=== PATIENT | male | born 1955 | race Caucasian/White ===

== ENCOUNTER 2022-07-01 09:41 | Outpatient (CLI) | payer MEDICARE, OTHER, SELFPAY ==
--- NOTE | 2022-07-01 10:06 | CT_ITS ---
WS: [id number] LDCT LUNG CANCER SCREENING TECHNIQUE: Noncontrast CT of the chest with coronal and sagittal reformatted images. CLINICAL INFORMATION: FORMER SMOKER COMPARISON: None. DLP: 72.42 mGy.cm DIvol: Mean CTDIvol: 1.60 (mGy) All CT scans at [facility] use at least one of these dose optimization techniques: automat ed exposure control; mA and/or kV adjustment per patient size (includes targeted exams where dose is matched to clinical indication); or iterative reconstruction. FINDINGS: A few tiny noncalcified nodules in the RIGHT upper lobe and RIGHT lower lobe. Tiny noncalcified nodul e LEFT lower lobe. Normal caliber thoracic aorta. Coronary calcification. No mediastinal or hilar lym phadenopathy. Normal GE junction. Normal adrenal glands. Splenic granuloma. No axillary lymphadenopat hy. Hypertrophic changes thoracic spine. CT/CT lung screening [id number] IMPRESSION: LUNG-RADS: 2-Benign Appearance or Behavior FOLLOW UP: 12 Month: Continue annual screening with LDCT
== END 2022-07-01 09:42 | disposition home or self-care (01) ==
LOC: RAD 09:43
PROVIDERS: PCP Family Medicine; Visit Provider Family Medicine
DX: Z12.2 Encounter for screening for malignant neoplasm of respiratory organs (principal); Z87.891 Personal history of nicotine dependence
CPT/HCPCS: 71271

== ENCOUNTER 2023-07-08 07:53 | Outpatient (CLI) | payer MEDICARE, OTHER, SELFPAY ==
--- NOTE | 2023-07-08 08:02 | CT_ITS ---
WS: [id number] LDCT LUNG CANCER SCREENING HISTORY: HX OF TOBACCO USE TECHNIQUE: Axial imaging performed from the apices to 1 cm below the costophrenic angles. Coronal and sagittal reformats are submitted with axial MIP series. All CT scans at [facility] use at least one of these dose optimization techniques: automated exposure control; mA and/or kV adjustment per patient size (includes targeted exams where dose is matched to clinical indication); or iterativ e reconstruction. DLP: 137.16 mGy.cm DIvol: Mean CTDIvol: 3.30 (mGy) COMPARISON: 07/01/2022 Diagnostic quality: Satisfactory Lungs: Scattered micronodules are noted as before. There are no new masses or nodule. No increasing s ize of the nodules. No pneumonia. No endobronchial lesions. Heart: Normal size heart with no pericardial effusion.. Coronary artery calcifications. Other findings: Mild atherosclerosis aorta. Normal size aorta and pulmonary artery. No adenopathy darleen ntified. Large calcification in the spleen. May be from prior trauma. Hepatic steatosis. Large anteri or bridging osteophytes throughout the thoracic spine. Prior RIGHT rotator cuff repair. Several ancho rs are noted in the humeral head. IMPRESSION: CT/CT lung screening [id number] LUNG-RADS: 2-Benign Appearance or Behavior FOLLOW UP: 12 Month: Continue annual screening with LDCT OTHER FINDINGS (S MODIFIER): None.
== END 2023-07-08 07:54 | disposition home or self-care (01) ==
LOC: RAD 07:53
PROVIDERS: PCP Family Medicine; Visit Provider Family Medicine
DX: Z12.2 Encounter for screening for malignant neoplasm of respiratory organs (principal); Z87.891 Personal history of nicotine dependence
CPT/HCPCS: 71271

== ENCOUNTER 2023-09-16 09:23 | Outpatient (CLI) | payer MEDICARE, OTHER, SELFPAY ==
--- NOTE | 2023-09-16 09:25 | XRR_ITS ---
PROCEDURE INFORMATION: Exam: XR Chest Exam date and time: 09/16/2023 9:34 AM Age: 68 years old Clinical indication: Patient HX: Wheezing, choked on food 3 days ago; Additional info: Expiratory wheezing TECHNIQUE: Imaging protocol: Radiologic exam of the chest. Views: 2 views. COMPARISON: CT lung screening [id number] 07/08/2023 8:33 AM FINDINGS: Lungs: Bilateral lower lobe pulmonary infiltrates, right greater than left. Pleural spaces: Unremarkable. No pleural effusion. No pneumothorax. Heart/Mediastinum: Unremarkable. No cardiomegaly. Bones/joints: Unremarkable. XR/XR chest 2V* [id number] IMPRESSION: Bibasilar pulmonary infiltrates.
== END 2023-09-16 09:24 | disposition home or self-care (01) ==
LOC: RAD 09:24
PROVIDERS: PCP Family Medicine; Visit Provider Nurse Practitioner Family
DX: R06.2 Wheezing (principal)
CPT/HCPCS: 71046

== ENCOUNTER 2023-11-21 05:24 | Emergency (ER) | payer MEDICARE, OTHER, SELFPAY ==
[2023-11-21] VITALS (7 sets, daily range): BP systolic 155–202; BP diastolic 72–85; PULSE 75–83; RESP 16–24; TEMP 36.8; O2SAT 89–97; BMI 38.0
--- NOTE | 2023-11-21 05:30 | ECG_ITS ---
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 Measurements Intervals [place] Rate: 86 P: 79 MT: 164 QRS: 70 QRSD: 155 T: 53 QT: 372 QTc: 447 Interpretive Statements SINUS RHYTHM INDETERMINATE AXIS RIGHT BUNDLE BRANCH BLOCK [120+ ms QRS DURATION, UPRIGHT V1, 40+ ms S IN I/aVL/V4/V5/V6] No previous ECG available for comparison Electronically Signed On 11-21-2023 17:32:49 HAND WEAVER by Alondra Shaffer M.D. [email or web address] [email or web address]/store/NU/[id number] f
--- NOTE | 2023-11-21 05:30 | XRR_ITS ---
PROCEDURE INFORMATION: Exam: XR Chest Exam date and time: 11/21/2023 5:32 AM Age: 68 years old Clinical indication: Shortness of breath; Chest pressure; Patient HX: Chest pain with SOB. TECHNIQUE: Imaging protocol: Radiologic exam of the chest. Views: 1 view. COMPARISON: CR XR chest 2V* [id number] 09/16/2023 9:34 AM FINDINGS: Lungs: Bibasilar subsegmental atelectasis. Small overlying consolidation is not excluded. Pleural spaces: No large pleural effusion. No distinct pneumothorax. Heart/Mediastinum: Cardiomediastinal silhouette is midline and normal in size. Bones/joints: Osseous structures are unchanged. XR/XR chest 1V portable [id number] IMPRESSION: Bibasilar subsegmental atelectasis. Small overlying consolidation is not excluded.
[2023-11-21 05:42] LABS: Basophils % 0.3 %; Eosinophils # 0.2 10^3/uL (0.0-0.8); Eosinophils % 3.3 %; Hematocrit 37.8 % (37-53); Lymphocytes # 1.5 10^3/uL (0.8-4.8); Lymphocytes % 19.8 %; Mean Corpuscular HGB Conc 32.3 g/dL (30-55); Mean Corpuscular Hemoglobin 30.2 pg (27-33); Mean Corpuscular Volume 93.6 fl (82-101); Mean Platelet Volume 10.8 fL (7.4-10.4); Monocytes # 0.5 10^3/uL (0.2-0.9); Monocytes % 6.3 %; Neutrophils # 5.16 10^3/uL (1.8-7.7); Nucleated Red Blood Cells % 0 %; Platelet Count 188 10^3/cmm (157-399); Red Blood Count 4.04 10^6/uL (3.85-5.65); Red Cell Distribution Width 14.7 % (12.1-15.1); White Blood Count 7.36 10^3/uL (3.29-11.43)
[2023-11-21 05:54] LABS: INR 0.98 (0.8-1.2)
--- NOTE | 2023-11-21 05:57 | ED_ITS ---
Documented by User: Jaylen Bojorquez DO 11/21/23 06:00 HPI - SOB/Dyspnea 2 General: Chief Complaint: Shortness of Breath/Dyspnea Stated Complaint: SOB Time Seen by Provider: 11/21/23 05:30 History of Present Illness: HPI Narrative: Patient presents to the ER with complaints of about 3 days of shortness of breath. This only happens when he ambulates and then it takes 5 to 10 minutes for him to regain his composure. Patient does not have a history of COPD he does not use home oxygen. Patient denies fever chills cough cold sore throats nausea vomiting diarrhea constipation. Patient does have an albuterol inhaler that he received approximately month ago when he had pneumonia but he has been using it with minimal improvement. Patient did get back to normal over that pneumonia and this is something new. Review of Systems 2 General: Reports: 10 or more systems reviewed and unremarkable except in HPI and below Physical Exam 2 Const: COMMON NORMALS: no acute distress, average body habitus, patient oriented x3, no limitations, healthy appearing, alert and well nourished HENMT: COMMON NORMALS: normocephalic, atraumatic, hearing grossly normal bilaterally, external ears normal, Normal external nose present, moist oral mucous membranes and oropharynx normal HEAD & SCALP: normocephalic and atraumatic NOSE: Normal external nose present EXTERNAL EAR: Yes external ears normal Eye: COMMON NORMALS: Equal, round and reactive pupils present, EOMs intact bilaterally, conjunctivae normal and no scleral icterus CONJUNCTIVA: Yes conjunctivae normal PUPIL: Yes Equal, round and reactive pupils present Neck/C-Spine: COMMON NORMALS: no JVD Chest: COMMONS NORMALS: normal inspection of the chest and normal palpation of entire chest wall Resp: COMMON NORMALS: normal respiratory effort, No retractions and No use of accessory muscles; negative for clear to auscultation bilaterally (biat wheezing) AUSCULTATION: not clear to auscultation bilaterally (biat wheezing) Cardio: COMMON NORMALS: no JVD, regular rate, regular rhythm, S1 normal heart sound present, S2 normal heart sound present and No gallops present (Cardio) RATE: regular rate RHYTHM: regular rhythm HEART SOUNDS: S1 normal heart sound present and S2 normal heart sound present GI: COMMON NORMALS: Normal to inspection, nondistended, normoactive bowel sounds present, Soft to palpation, non-tender, No hepatosplenomegaly present and no masses PALPATION: Yes Soft to palpation and Yes No hepatosplenomegaly present Neuro: COMMON NORMALS: patient oriented x3 SENSORIUM/ORIENTATION: Yes alert Course 2 Vital Signs: Vital signs: Vital Signs Temperature 98.2 F 11/21/23 05:31 Pulse Rate 75 11/21/23 10:09 Respiratory Rate 17 11/21/23 10:09 Blood Pressure 158/72 11/21/23 10:09 Pulse Oximetry 93 11/21/23 10:09 Oxygen Delivery Me thod Nasal Cannula 11/21/23 06:08 Oxygen Flow Rate 2 11/21/23 06:08 MDM - SOB/Dyspnea Medical Records I reviewed the patient's medical records. Lab Data I reviewed the patient's lab results. 11/21/23 05:38 11/21/23 05:38 Labs/Radiology: Radiology Impressions Chest X-Ray 11/21/23 05:30 IMPRESSION: Bibasilar subsegmental atelectasis. Small overlying consolidation is not excluded. Laboratory Results WBC 7.36 10^3/uL (3.29-11.43) 11/21/23 05:38 RBC 4.04 10^6/uL (3.85-5.65) 11/21/23 05:38 Hgb 12.20 g/dL (11.27-16.99) 11/21/23 05:38 Hct 37.8 % (37-53) 11/21/23 05:38 MCV 93.6 fl (82-101) 11/21/23 05:38 MCH 30.2 pg (27-33) 11/21/23 05:38 MCHC 32.3 g/dL (30-55) 11/21/23 05:38 RDW 14.7 % (12.1-15.1) 11/21/23 05:38 Plt Count 188 10^3/cmm (157-399) 11/21/23 05:38 MPV 10.8 fL (7.4-10.4) H 11/21/23 05:38 Neut % (Auto) 70.0 % 11/21/23 05:38 Lymph % (Auto) 19.8 % 11/21/23 05:38 [place] % (Auto) 6.3 % 11/21/23 05:38 Eos % (Auto) 3.3 % 11/21/23 05:38 Baso % (Auto) 0.3 % 11/21/23 05:38 Neut # (Auto) 5.16 10^3/uL (1.8-7.7) 11/21/23 05:38 Lymph # (Auto) 1.5 10^3/uL (0.8-4.8) 11/21/23 05:38 [place] # (Auto) 0.5 10^3/uL (0.2-0.9) 11/21/23 05:38 Eos # (Auto) 0.2 10^3/uL (0.0-0.8) 11/21/23 05:38 Baso # (Auto) 0.0 10^3/uL (0.0-0.1) 11/21/23 05:38 Nucleated RBC % (auto) 0 % 11/21/23 05:38 Nucleated RBCs # 0.0 /100WBC 11/21/23 05:38 PT 13.30 SECONDS (12.1-14.9) 11/21/23 05:38 INR 0.98 (0.8-1.2) 11/21/23 05:38 Sodium 139 mmol/L (136-145) 11/21/23 05:38 Potassium 4.5 mmol/L (3.5-5.1) 11/21/23 05:38 Chloride 102 mmol/L (98-107) 11/21/23 05:38 Carbon Dioxide 27 mmol/L (22-29) 11/21/23 05:38 Anion Gap 14.5 (5-19) 11/21/23 05:38 BUN 15 mg/dL (8-23) 11/21/23 05:38 Creatinine 1.0 mg/dL (0.7-1.2) 11/21/23 05:38 GFR Calculation 74.3 mL/min (90-130) L 11/21/23 05:38 Glucose 161 mg/dL (65-115) H 11/21/23 05:38 Calculated Osmolality 292 mOsm/kg (285-295) 11/21/23 05:38 Calcium 8.9 mg/dL (8.5-10.5) 11/21/23 05:38 Total Bilirubin 0.6 mg/dL (0.15-1.2) 11/21/23 05:38 AST 19 U/L (0-40) 11/21/23 05:38 ALT 31 U/L (0-41) 11/21/23 05:38 Alkaline Phosphatase 40 U/L (40-130) 11/21/23 05:38 Troponin T Baseline 21 ng/L (0-15) H 11/21/23 05:38 Troponin T 120 Minute 19.30 ng/L (0-15) H 11/21/23 07:47 Delta Troponin T -1.70 ABS# (0-10) L 11/21/23 07:47 NT-Pro-B Natriuret Pep 384 pg/mL (0-125) H 11/21/23 05:38 Total Protein 6.4 g/dL (6.6-8.7) L 11/21/23 05:38 Albumin 4.5 g/dL (3.5-5.2) 11/21/23 05:38 Globulin 1.9 g/dL (1.3-4.6) 11/21/23 05:38 Influenza Type A Ag negative (Negative) 11/21/23 05:59 Influenza Type B Ag negative (Negative) 11/21/23 05:59 SARS-CoV-2 Ag (Rapid) negative (Negative) 11/21/23 05:59 All radiology interpretation(s) finalized by discharge Discharge Plan Discharge Patient Disposition: Home Clinical Impression: Acute exacerbation of chronic obstructive airways disease Condition: Stable Prescriptions: New doxycycline hyclate 100 mg capsule 100 mg PO BID 5 Days Qty: 10 0RF prednisone 20 mg tablet 20 mg PO DAILY 5 Days Qty: 10 0RF Rx Instructions: days 11-21 of therapy No Action cyclobenzaprine 10 mg tablet 10 mg PO DAILY atorvastatin 40 mg tablet 40 mg PO QPM meloxicam 15 mg tablet 15 mg PO DAILY glipizide 10 mg tablet 10 mg PO BID hydrocodone-acetaminophen 10-325 mg tablet 1 tab PO Q4H tramadol 50 mg tablet 50 - 100 mg PO Q4H PRN (Reason: Pain) tamsulosin 0.4 mg capsule 0.4 mg PO BID metformin 1,000 mg tablet 1,000 mg PO BID lisinopril 30 mg tablet 30 mg PO DAILY gabapentin 300 mg capsule 300 mg PO BID albuterol sulfate 90 mcg/actuation HFA aerosol inhaler 2 puff INHALATION Q6H finasteride 5 mg tablet 5 mg PO DAILY escitalopram oxalate 20 mg tablet 20 mg PO DAILY tadalafil 20 mg Tablet 20 mg PO DAILY PRN (Reason: Erectile Dysfunction) Rx Instructions: administer approximately 30min before sexual activity; do not use more than 1 dose per 24hrs Fish Oil 300-1,000 mg Capsule 2 cap PO QPM Discharge Orders: Discharge ED (Routine); Ordered 11/21/23 Ordered By: Stan Johns Referrals: Antione Zhao MD [Primary Care Provider] - 1 week Discharge Diet: Usual diet and Low Salt Discharge Activity: Increase activity as tolerated Patient Instructions: Opioid Safety, Pain Management Activity Restrictions/Additional Instructions: As we discussed we think you have acute bronchitis. We recommend the medications that we have prescribed for the next 5 days. We also recommend to use your inhaler 2 puffs 4 times daily for the next 5 days and then as needed. Also follow-up with your doctor in the next 1-2 weeks to discuss additional either pulmonary function testing and/or stress testing. If it anytime you develop worsening shortness of breath chest pain etc. return to this or the nearest emergency department. Coding Level of Care Code ED Dental Professional for Chg Fwd Documented by User: Stan Johns DO 11/21/23 11:11 HPI - SOB/Dyspnea 2 General: Chief Complaint: Shortness of Breath/Dyspnea Stated Complaint: SOB Time Seen by Provider: 11/21/23 05:30 Course 2 Reevaluation(s): Reevaluation #1: This patient was checked out to me over from the overnight physician. The patient is has approximately 3-day history of feeling short of breath with activity. No fevers or chills. No associated chest pain. No prior history of similar occurrences. No known history of cardiovascular disease or cardiopulmonary disease. He is an ex-smoker having discontinued 10 years ago. No recent illness or exposure to infectious disease. My clinical examination reveals him to be alert with no evidence of respiratory difficulty. He speaks in complete sentences. His chest is clear without wheeze or crackle cardiovascular and rate without murmur. Time: 09:25 Reevaluation #2: Patient remained stable. He is ambulated about the emergency department without oxygen and he feels back to baseline. His troponins did not have a significant positive delta, his BNP is nondiagnostic. His chest x-ray shows atelectatic changes but no evidence of infection and has not had fever or leukocytosis. His COVID and influenza tests are negative. This seems to be more consistent with exacerbation of his COPD at this time we will continue him on 5-day course of prednisone and as well as have him use his beta agonist inhaler 4 times daily on her scheduled basis. We also discussed follow-up with his primary care doctor to discuss possible pulmonary function testing and possibly stress testing. Time: 11:04 Vital Signs: Vital signs: Vital Signs Temperature 98.2 F 11/21/23 05:31 Pulse Rate 75 11/21/23 10:09 Respiratory Rate 17 11/21/23 10:09 Blood Pressure 158/72 11/21/23 10:09 Pulse Oximetry 93 11/21/23 10:09 Oxygen Delivery Me thod Nasal Cannula 11/21/23 06:08 Oxygen Flow Rate 2 11/21/23 06:08 MDM - SOB/Dyspnea Medical Decision Making Patient with a known history of COPD without any known history of cardiovascular disease to come to the emergency department because of 3 days of shortness of breath and some wheezing particular with activity. There was no known exposure to infectious disease no associated fever or chills. Workup was initiated by the overnight physician and disposition was made by oh. Serial troponins were notable for no significant delta. Serial EKGs did not have show any dynamic ischemic changes. His chest x-ray was generally reassuring with atelectatic changes but questionable saltation. And his viral studies were also reassuring. At this time it seems to be consistent with a exacerbation of his COPD and is being placed on prednisone as well as scheduled use of his in metered-dose inhale and a 5-day course of doxycycline. r with primary care follow-up for additional testing as well as return precautions. Lab Data 11/21/23 05:38 11/21/23 05:38 Labs/Radiology: Radiology Impressions Chest X-Ray 11/21/23 05:30 IMPRESSION: Bibasilar subsegmental atelectasis. Small overlying consolidation is not excluded. Laboratory Results WBC 7.36 10^3/uL (3.29-11.43) 11/21/23 05:38 RBC 4.04 10^6/uL (3.85-5.65) 11/21/23 05:38 Hgb 12.20 g/dL (11.27-16.99) 11/21/23 05:38 Hct 37.8 % (37-53) 11/21/23 05:38 MCV 93.6 fl (82-101) 11/21/23 05:38 MCH 30.2 pg (27-33) 11/21/23 05:38 MCHC 32.3 g/dL (30-55) 11/21/23 05:38 RDW 14.7 % (12.1-15.1) 11/21/23 05:38 Plt Count 188 10^3/cmm (157-399) 11/21/23 05:38 MPV 10.8 fL (7.4-10.4) H 11/21/23 05:38 Neut % (Auto) 70.0 % 11/21/23 05:38 Lymph % (Auto) 19.8 % 11/21/23 05:38 [place] % (Auto) 6.3 % 11/21/23 05:38 Eos % (Auto) 3.3 % 11/21/23 05:38 Baso % (Auto) 0.3 % 11/21/23 05:38 Neut # (Auto) 5.16 10^3/uL (1.8-7.7) 11/21/23 05:38 Lymph # (Auto) 1.5 10^3/uL (0.8-4.8) 11/21/23 05:38 [place] # (Auto) 0.5 10^3/uL (0.2-0.9) 11/21/23 05:38 Eos # (Auto) 0.2 10^3/uL (0.0-0.8) 11/21/23 05:38 Baso # (Auto) 0.0 10^3/uL (0.0-0.1) 11/21/23 05:38 Nucleated RBC % (auto) 0 % 11/21/23 05:38 Nucleated RBCs # 0.0 /100WBC 11/21/23 05:38 PT 13.30 SECONDS (12.1-14.9) 11/21/23 05:38 INR 0.98 (0.8-1.2) 11/21/23 05:38 Sodium 139 mmol/L (136-145) 11/21/23 05:38 Potassium 4.5 mmol/L (3.5-5.1) 11/21/23 05:38 Chloride 102 mmol/L (98-107) 11/21/23 05:38 Carbon Dioxide 27 mmol/L (22-29) 11/21/23 05:38 Anion Gap 14.5 (5-19) 11/21/23 05:38 BUN 15 mg/dL (8-23) 11/21/23 05:38 Creatinine 1.0 mg/dL (0.7-1.2) 11/21/23 05:38 GFR Calculation 74.3 mL/min (90-130) L 11/21/23 05:38 Glucose 161 mg/dL (65-115) H 11/21/23 05:38 Calculated Osmolality 292 mOsm/kg (285-295) 11/21/23 05:38 Calcium 8.9 mg/dL (8.5-10.5) 11/21/23 05:38 Total Bilirubin 0.6 mg/dL (0.15-1.2) 11/21/23 05:38 AST 19 U/L (0-40) 11/21/23 05:38 ALT 31 U/L (0-41) 11/21/23 05:38 Alkaline Phosphatase 40 U/L (40-130) 11/21/23 05:38 Troponin T Baseline 21 ng/L (0-15) H 11/21/23 05:38 Troponin T 120 Minute 19.30 ng/L (0-15) H 11/21/23 07:47 Delta Troponin T -1.70 ABS# (0-10) L 11/21/23 07:47 NT-Pro-B Natriuret Pep 384 pg/mL (0-125) H 11/21/23 05:38 Total Protein 6.4 g/dL (6.6-8.7) L 11/21/23 05:38 Albumin 4.5 g/dL (3.5-5.2) 11/21/23 05:38 Globulin 1.9 g/dL (1.3-4.6) 11/21/23 05:38 Influenza Type A Ag negative (Negative) 11/21/23 05:59 Influenza Type B Ag negative (Negative) 11/21/23 05:59 SARS-CoV-2 Ag (Rapid) negative (Negative) 11/21/23 05:59 EKG Data EKG 2: I personally reviewed and interpreted this EKG as follows: Interpretation: Contemporaneous review of EKG after my arrival reveals a ventricular rate of 77 bpm. Normal MI interval normal QRS duration, normal corrected QT interval. Leftward axis consistent with right bundle branch block. No acute ST-T wave changes noted. This tracing is unchanged compared with the tracing obtained earlier this date. Discharge Plan Discharge Patient Disposition: Home Clinical Impression: Acute exacerbation of chronic obstructive airways disease Condition: Stable Prescriptions: New doxycycline hyclate 100 mg capsule 100 mg PO BID 5 Days Qty: 10 0RF prednisone 20 mg tablet 20 mg PO DAILY 5 Days Qty: 10 0RF Rx Instructions: days 11-21 of therapy No Action cyclobenzaprine 10 mg tablet 10 mg PO DAILY atorvastatin 40 mg tablet 40 mg PO QPM meloxicam 15 mg tablet 15 mg PO DAILY glipizide 10 mg tablet 10 mg PO BID hydrocodone-acetaminophen 10-325 mg tablet 1 tab PO Q4H tramadol 50 mg tablet 50 - 100 mg PO Q4H PRN (Reason: Pain) tamsulosin 0.4 mg capsule 0.4 mg PO BID metformin 1,000 mg tablet 1,000 mg PO BID lisinopril 30 mg tablet 30 mg PO DAILY gabapentin 300 mg capsule 300 mg PO BID albuterol sulfate 90 mcg/actuation HFA aerosol inhaler 2 puff INHALATION Q6H finasteride 5 mg tablet 5 mg PO DAILY escitalopram oxalate 20 mg tablet 20 mg PO DAILY tadalafil 20 mg Tablet 20 mg PO DAILY PRN (Reason: Erectile Dysfunction) Rx Instructions: administer approximately 30min before sexual activity; do not use more than 1 dose per 24hrs Fish Oil 300-1,000 mg Capsule 2 cap PO QPM Discharge Orders: Discharge ED (Routine); Ordered 11/21/23 Ordered By: Stan Johns Referrals: Antione Zhao MD [Primary Care Provider] - 1 week Discharge Diet: Usual diet and Low Salt Discharge Activity: Increase activity as tolerated Patient Instructions: Opioid Safety, Pain Management Activity Restrictions/Additional Instructions: As we discussed we think you have acute bronchitis. We recommend the medications that we have prescribed for the next 5 days. We also recommend to use your inhaler 2 puffs 4 times daily for the next 5 days and then as needed. Also follow-up with your doctor in the next 1-2 weeks to discuss additional either pulmonary function testing and/or stress testing. If it anytime you develop worsening shortness of breath chest pain etc. return to this or the nearest emergency department. Coding Level of Care Code ED Dental Professional for Cyn Weeks
[2023-11-21 06:08] LABS: Troponin(5th) Baseline 21 ng/L (0-15)
[2023-11-21] MEDS: ipratropium-albuterol 3 mL Neb INHALATION (06:08)
[2023-11-21 06:16] LABS: Alanine Aminotransferase 31 U/L (0-41); Albumin Level 4.5 g/dL (3.5-5.2); Alkaline Phosphatase 40 U/L (40-130); Anion Gap 14.5 (5-19); Aspartate Amino Transferase 19 U/L (0-40); Blood Urea Nitrogen 15 mg/dL (8-23); Calcium 8.9 mg/dL (8.5-10.5); Carbon Dioxide 27 mmol/L (22-29); Chloride 102 mmol/L (98-107); Creatinine Clr Calc Pharmacy 86.3992; Globulin 1.9 g/dL (1.3-4.6); Glomerular Filtration Rate 74.3 mL/min (90-130); Glucose 161 mg/dL (65-115); NT Pro B Type Natriuretic Pept 384 pg/mL (0-125); Osmolality Calculated 292 mOsm/kg (285-295); Potassium 4.5 mmol/L (3.5-5.1); Sodium 139 mmol/L (136-145); Total Bilirubin 0.6 mg/dL (0.15-1.2); Total Protein 6.4 g/dL (6.6-8.7)
[2023-11-21 06:21] LABS: Influenza A by IFA negative (Negative); Influenza B by IFA negative (Negative); SARS Covid-2 Antigen negative (Negative)
--- NOTE | 2023-11-21 07:30 | ECG_ITS ---
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 Measurements Intervals [place] Rate: 77 P: 65 TN: 168 QRS: 65 QRSD: 157 T: 34 QT: 409 QTc: 463 Interpretive Statements SINUS RHYTHM RIGHT BUNDLE BRANCH BLOCK [120+ ms QRS DURATION, UPRIGHT V1, 40+ ms S IN I/aVL/V4/V5/V6] Compared to ECG 11/21/2023 05:30:33 Indeterminate axis no longer present Electronically Signed On 11-21-2023 18:01:40 PERINATAL DIRECTOR by Alondra Shaffer M.D. [id number]
== END 2023-11-21 11:26 | disposition home or self-care (01) ==
PROVIDERS: Emergency Provider Emergency Medicine; PCP Family Medicine
DX: J44.1 Chronic obstructive pulmonary disease with (acute) exacerbation (principal); Z79.84 Long term (current) use of oral hypoglycemic drugs; Z11.52 Encounter for screening for COVID-19
CPT/HCPCS: 71045; 80053; 83880; 84484; 85025; 85610; 87426; 87804; 93005; 94640; 99285

== ENCOUNTER 2024-01-02 08:43 | Outpatient (CLI) | payer MEDICARE, OTHER, SELFPAY ==
--- NOTE | 2024-01-02 08:51 | XR_ITS ---
WS: [id number] Exam: XR hip LT 2-3V wo/w pel* [id number] Date/Time of Exam: 01/02/2024 8:52 AM Reason For Exam: RIGHT HIP PAIN, LEFT HIP PAIN, VERTEBROGENIC LOW BACK PAIN No acute fracture or dislocation. Minimal degenerative change. Nonspecific soft tissue calcifications along the lateral aspect of the upper femur. IMPRESSION: 1. Mild DJD. No fracture or other significant finding.
--- NOTE | 2024-01-02 08:51 | XR_ITS ---
WS: [id number] Exam: XR hip RT 2-3V wo/w pel* [id number] Date/Time of Exam: 01/02/2024 8:52 AM Reason For Exam: BILATERAL HIP PAIN, LOW BACK PAIN No acute fracture or dislocation. 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 Soft tissues are unremarkabl e. IMPRESSION: 1. No acute fracture. 2. Mild to moderate DJD.
--- NOTE | 2024-01-02 08:52 | XR_ITS ---
WS: [id number] Exam: XR lumbar spine f/e only [id number] Date/Time of Exam: 01/02/2024 8:52 AM Reason For Exam: BILATERAL HIP PAIN, LOW BACK PAIN Comparison 07/04/2016. No flexion or extension instability is identified. Disc degeneration at L5-S1. Marked spondylosis. Fa cet DJD from L3-S1. Extensive aortoiliac atherosclerosis. IMPRESSION: 1. No fracture or malalignment. No instability. 2. Moderately advanced degenerative changes as detailed above.
== END 2024-01-02 08:44 | disposition home or self-care (01) ==
LOC: RAD 08:44
PROVIDERS: PCP Family Medicine; Visit Provider Anesthesiology Pain Medicine
DX: M25.551 Pain in right hip (principal); M25.552 Pain in left hip; M54.51 Vertebrogenic low back pain; M51.36 Other intervertebral disc degeneration, lumbar region; M16.0 Bilateral primary osteoarthritis of hip
CPT/HCPCS: 72120; 73502

== ENCOUNTER 2024-02-24 10:44 | Outpatient (CLI) | payer MEDICARE, SELFPAY ==
--- NOTE | 2024-02-24 10:49 | MR_ITS ---
WS: [id number] MRI LUMBAR SPINE NONCONTRAST HISTORY: VERTEBROGENIC LOW BACK PAIN COMPARISON: 07/04/2016 TECHNIQUE: Sagittal and axial multisequence imaging is submitted. Disc osteophyte encroachment and longitudinal ligament calcification encroaching upon the cervical ca nal at C4 causing at least a mild stenosis. This was previously described in 2016. There are large cl aw-like bridging osteophytes along the anterior thoracic spine. Normal lumbar alignment. No fractures or marrow edema. Mild disc base narrowing and desiccation. There is a small amount of fluid in the L5-S1 disc space wh ich is new. Conus terminates normally at L1-2 disc level. L1-L2: Mild annular disc bulging with ligamentum flavum disease. Mild bilateral foraminal stenosis. T here is mild narrowing of the thecal sac. L2-L3: Mild narrowing of the thecal sac. Marked ligamentum flavum and facet arthritis with a trefoil appearance of the thecal sac. Mild disc bulging and osteophytosis. Severe central, bilateral subartic ular recess and moderate foraminal stenosis. Deformity of the traversing L3 nerve roots in the subart icular recesses. Progression of stenosis since 2016. L3-L4: Diffuse annular disc bulging with severe ligamentum flavum and facet arthritis. Small central canal. Moderate to severe central with severe bilateral subarticular recess and LEFT foraminal stenos is. Moderate RIGHT foraminal stenosis. There is significant encroachment upon the L3 and L4 nerve rian ts bilaterally but greatest on the LEFT. Progression of stenosis since 2016. L4-L5: Severe central canal stenosis. Annular disc bulging with severe facet and ligamentum flavum hy pertrophy. Small amount of fluid in the facet joints. Severe central with bilateral subarticular rece ss and foraminal stenosis. Greater stenosis on the RIGHT. Progression of stenosis since the prior philip dy. L5-S1: Mild osteophytic ridging with disc bulging and facet arthritis. Shallow central disc protrusio n. Mild central and bilateral subarticular recess with mild to moderate foraminal stenosis. Similar t o the prior study. MR/MR lumbar spine wo con* [id number] IMPRESSION: 1. Severe multilevel degenerative changes of the lumbar spine with progression of stenosis since 2016. 2. L4-5: Severe central with bilateral subarticular recess and foraminal steno sis. Greater stenosis on the RIGHT. There is significant encroachment upon the L4 and L5 nerve roots. 3. L3-4: Moderate to severe central with severe bilateral subarticular recess and LEFT foraminal stenosis. Moderate RIGHT foraminal stenosis. There is signif icant encroachment upon the L3 and L4 nerve roots but greatest on the LEFT. 4. L2-3: Severe central, bilateral subarticular recess and moderate foraminal stenosis. 5. L5-S1: Mild central with bilateral subarticular recess with mild to moderat e foraminal stenosis.
== END 2024-02-24 10:45 | disposition home or self-care (01) ==
LOC: RAD 10:44
PROVIDERS: PCP Family Medicine; Visit Provider Anesthesiology Pain Medicine
DX: M51.36 Other intervertebral disc degeneration, lumbar region (principal); M99.63 Osseous and subluxation stenosis of intervertebral foramina of lumbar region; M46.06 Spinal enthesopathy, lumbar region; M25.78 Osteophyte, vertebrae
CPT/HCPCS: 72148

== ENCOUNTER 2024-11-25 11:54 | Outpatient (CLI) | payer MEDICARE, OTHER, SELFPAY ==
--- NOTE | 2024-11-25 12:02 | CT_ITS ---
WS: [id number] LDCT LUNG CANCER SCREENING TECHNIQUE: Noncontrast CT of the chest with coronal and sagittal reformatted images. CLINICAL INFORMATION: HX OF TOBACCO USE COMPARISON: 2022 DLP: 134.70 mGy.cm DIvol: Mean CTDIvol: 3.20 (mGy) All CT scans at [facility] use at least one of these dose optimization techniques: automated exposure control; mA and/or kV adjustment per patient size (includes targeted exams where dose is matched to clinical indication); or iterative reconstruction. FINDINGS: Stable scattered bilateral micronodules. No new suspicious pulmonary parenchymal abnormalities. Aortic calcification. Coronary calcification. No mediastinal or hilar lymphadenopathy. No axillary lymphadenopathy. Adrenal glands are normal. Splenic calcification. 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 RIGHT rotator cuff anchor. CT/CT lung screening [id number] IMPRESSION: LUNG-RADS: 2-Benign Appearance or Behavior FOLLOW UP: 12 Month: Continue annual screening with LDCT
--- NOTE | 2024-11-25 12:02 | MR_ITS ---
WS: [id number] EXAMINATION: MR hip LT wo con* [id number] ORDER DATE: 11/25/2024 12:21 PM HISTORY: L HIP JOINT PAIN TECHNIQUE: Coronal STIR of the Pelvis. Coronal proton density, coronal T1, axial T2 fat sat, axial T1, sagittal T2 fat sat, and sagittal T1 performed of the hip. After contrast, axial T1 fat sat, coronal T1 fat sat, and sagittal T1 fat sat were performed. FINDINGS: Some images limited due to body habitus. Moderate degenerative arthritis LEFT hip. No acute fractures. No evidence of avascular necrosis. Similar-appearing moderate degenerative arthritis RIGHT hip. No evidence of subchondral edema. No edema in the underlying acetabulum. Evidence of bilateral trochanteric bursitis with fluid and edema. Normal bone marrow signal in the bony pelvis and sacrum. Postoperative changes lower lumbar spine with susceptibility artifact. MR/MR hip LT con* [id number] IMPRESSION: 1. Moderate bilateral degenerative arthritis both hips. No evidence of avascul ar necrosis. 2. Bilateral trochanteric bursitis. 3. Normal bone marrow signal in the bony pelvis and sacrum. 4. 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
== END 2024-11-25 11:55 | disposition home or self-care (01) ==
PROVIDERS: PCP Family Medicine; Visit Provider Family Medicine
DX: Z12.2 Encounter for screening for malignant neoplasm of respiratory organs (principal); Z87.891 Personal history of nicotine dependence; M16.0 Bilateral primary osteoarthritis of hip; R91.8 Other nonspecific abnormal finding of lung field; I70.0 Atherosclerosis of aorta; I25.10 Atherosclerotic heart disease of native coronary artery without angina pectoris; D73.89 Other diseases of spleen; M43.24 Fusion of spine, thoracic region; M25.78 Osteophyte, vertebrae; Z98.890 Other specified postprocedural states; M70.62 Trochanteric bursitis, left hip; M70.61 Trochanteric bursitis, right hip; M19.09 Primary osteoarthritis, other specified site
CPT/HCPCS: 71271; 73721

== ENCOUNTER → 2024-12-07 07:48 | Outpatient (BNVA) | payer MEDICARE, OTHER, SELFPAY | PROVIDERS: PCP Family Medicine; Visit Provider Orthopaedic Surgery | DX: M25.552 Pain in left hip (principal) | CPT/HCPCS: 99204 ==

== ENCOUNTER 2024-12-21 07:55 | Outpatient (RCR) | payer MEDICARE, OTHER, SELFPAY | END 2025-01-12 23:59 | disposition home or self-care (01) | LOC: SPT 07:55 | PROVIDERS: Visit Provider Orthopaedic Surgery | DX: M25.552 Pain in left hip (principal) | CPT/HCPCS: 97110; 97161 ==

== ENCOUNTER 2025-01-13 05:00 | Outpatient (RCR) | payer MEDICARE, OTHER, SELFPAY | END 2025-02-12 23:59 | disposition home or self-care (01) | LOC: SPT 05:00 | PROVIDERS: Visit Provider Orthopaedic Surgery | DX: M25.552 Pain in left hip (principal) | CPT/HCPCS: 97110; 97140; 97164 ==

== ENCOUNTER → 2025-01-24 09:54 | Outpatient (BNVA) | payer MEDICARE, OTHER, SELFPAY | PROVIDERS: PCP Family Medicine; Visit Provider Orthopaedic Surgery | DX: M25.551 Pain in right hip (principal); M25.552 Pain in left hip; M70.62 Trochanteric bursitis, left hip | CPT/HCPCS: 99213 ==

== ENCOUNTER 2025-02-13 05:00 | Outpatient (RCR) | payer MEDICARE, OTHER, SELFPAY | END 2025-03-14 06:52 | disposition home or self-care (01) | LOC: SPT 05:00 | PROVIDERS: PCP Family Medicine; Visit Provider Orthopaedic Surgery | DX: M25.552 Pain in left hip (principal) | CPT/HCPCS: 97110 ==

== ENCOUNTER → 2025-02-21 09:54 | Outpatient (BNVA) | payer MEDICARE, OTHER, SELFPAY | PROVIDERS: PCP Family Medicine; Visit Provider Orthopaedic Surgery | DX: M70.72 Other bursitis of hip, left hip (principal) | CPT/HCPCS: 99213 ==

== ENCOUNTER → 2025-04-01 08:21 | Outpatient (BNVA) | payer MEDICARE, OTHER, SELFPAY | PROVIDERS: PCP Family Medicine; Visit Provider Orthopaedic Surgery | DX: M25.552 Pain in left hip (principal) | CPT/HCPCS: 99213 ==

== ENCOUNTER 2025-04-30 06:31 | Emergency (ER) | payer MEDICARE, OTHER, SELFPAY ==
--- OUTSIDE RECORDS SUMMARY | 2023-12-23 06:00 | XMS_ITS ---
Author Organization [facility] Address [address] [place] [address] Care Team Providers Care Communication Coordinator Name Role Phone ELMER AG Unavailable [phone] REASON FOR VISIT 6-8 wks w/ ua/pvr Encounters Encounter Location Date Provider Diagnosis [facility] [address] [place] [facility] [place] [address] 12/23/2023 ELMER AG Plan Of Treatment No Information Progress Notes * Frank LINK MDOB:1955 (70 yo M)Acc No.[id number]:12/23/2023 Progress Notes Patient: Roxy CORREA Frank Lobo Provider: JESSI Ferraro :1955 A ge:68 Y S ex:Male Date:12/23/2023 Address:[address] [place], [place] [id number] Subjective: * Chief Complaints: * 1 . 6-8 wks w/ ua/pvr. * Medical History: Objective: * Vitals: Assessment: Plan: * Treatment: * Billing Information: * Visit Code: * Procedure Codes: * Electronic signature of ELMER AG APRN on 04/30/2025 at 06:35 AM CDT Sign off status: Pending * Provider: JESSI Ferraro Date: 12/23/2023 Generated for Britt rocha/Valeria/Bonnieitting on: 0 04/30/2025 06:35 AM CDT
--- OUTSIDE RECORDS SUMMARY | 2025-04-30 06:35 | XMS_ITS | Patient Health Record ---
Author Organization [facility] Address [address] [place] [address] Care Team Providers Care Engineer Third Assistant Name Role Phone ELMER AG Unavailable [phone] Allergies No Known Allergies Reason For Referral No Information Medications Medication SIG (Take, Route, Frequency, Duration) Notes Start Date End Date Status Gabapentin 300 MG 1 capsule Orally Onc e a day Active traMADol HCl 50 MG 1 tablet as needed Orally Once a day Active metFORMIN HCl 1000 MG 1 tablet with a me al Orally Once a day Active Atorvastatin Calcium 40 MG 1 tablet Oral ly Once a day Active Escitalopram Oxalate 20 MG 1 tablet Oral ly Once a day Active glipiZIDE 10 MG 1 tablet 30 minutes before breakfast Orally Once a day Active Tamsulosin HCl 0.4 MG 1 capsule Orally O nce a day Active Lisinopril 30 MG 1 tablet Orally Once a day Active HYDROcodone-Acetaminophen 10-325 MG 1 tablet as needed Orally every 6 hrs Active Fish Oil Active Finasteride 5 MG 1 tablet Orally Once a day Active Meloxicam 15 MG 1 tablet Orally Once a day Active Cyclobenzaprine HCl 10 MG 1 tablet at be dtime as needed Orally Once a day Active Prostate Health Acti ve Social History Tobacco Use: Social History Observation Description Date Details (start date - stop date) Former Smoker NA - NA Tobacco Control (Standard) Question Answer Notes Tobacco use: Former smoker Problems Problem Type SNOMED Code ICD Code Onset Dates Problem Status W/U Status Risk Notes Problem Erectile dysfunction (N52.9) Active confirmed Plan Of Treatment No Information Insurance Providers Payer Name Payer Address Payer Phone Subscriber Number Group Number Insured Name Patient Relationship to Insured Coverage Start Date Coverage End Date [place] [address] [place] [id number] Frank Link Self - patient is the insured [employer] Medicare Supplement [address] [address] [place], [place] [id number] Frank Link Self - patient is the insured Medical (General) History Medical History History ICD Code arthrtis back trouble HTN diabetes
--- OUTSIDE RECORDS SUMMARY | 2025-04-30 06:35 | XMS_ITS | Encounter Summary ---
Author Organization [facility] Address [address] [place] [address] Care Team Providers Care Tin Stacker Name Role Phone Unavailable Primary Care Provider Unavailabl e Encounter Details Date Type Department Care Team (Late st Contact Info) Description 04/26/2025 External Device Data [facility] ABSTRACTION Provider, Abstract NO ADDRESS ON FILE Social History Tobacco Use Types Packs/Day Years Used Date Smoking Tobacco: Former Cigarettes 2 41 1 973 - 2014 Smokeless Tobacco: Never Alcohol Use Standard Drinks/Week Comments Not Currently 0 (1 standard drink = 0.6 oz pur e alcohol) Sex and Gender Information Value Date Recorded Sex Assigned at Not on file 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
--- OUTSIDE RECORDS SUMMARY | 2025-04-30 06:35 | XMS_ITS | Patient Health Record ---
Author Organization [facility] Address [address] [place], [place] [id number] Care Team Providers Care [employer] Teacher Name Role Phone Antione Zhao MD Primary Care Provider Brenda Jack MD, Cristóbal Unavailable [phone] Frank Goldsmith DO Unavailable Unavailable Tyrone AUTOMATION ARCHITECT, Hyacinth Unavailable [phone] Allergies No Known Allergies Results Component Value Reference Range Notes Embedded PDF Reviewed date:12/20/2024 08:12:48 AM Interpretation: Performing Lab: Notes/Report: Acetyl fentanyl: Fentanyl Negative. Acetyl norfentanyl: Fentanyl Negative. Acry l fentanyl: Fentanyl Negative. Carfentanil: Fentanyl Negative. Para-fluorofentan yl: Fentanyl Negative. [employer], [address] [employer] [address] [facility] [address] [address], , L ab Director: Janette Roblero MD, CLIA ID# [id number] Visual IQ Results Reviewed date:12/20/2024 08:12:32 AM Interpretation: Performing Lab:[id number] [employer], [address] [employer] [facility] [id number] Janette Roblero MD Notes/Report: [employer], [address] [address] [employer] [address] [facility] [address] [address], , L ab Director: Janette Roblero MD, CLIA ID# [id number] OPIATES SCREEN positive 300 ng/mL Codeine Quantification negative 50 ng/mL Morphine Quantification negative 50 ng/mL Hydrocodone Quantification positive-807.652 50 ng/mL Norhydrocodone Quantification positive-1356.779 50 ng/ mL Hydromorphone Quantification positive-59.675 50 ng/mL OXYCODONE SCREEN negative 100 ng/mL Oxycodone Quantification negative 50 ng/mL Noroxycodone Quantification negative 50 ng/mL Oxymorphone Quantification negative 50 ng/mL BUPRENORPHINE SCREEN negative 10 ng/mL Buprenorphine Quantification negative 5 ng/mL Norbuprenorphine Quantification negative 20 ng/mL FENTANYL SCREEN negative 2 ng/mL Fentanyl Quantification negative 1 ng/mL Norfentanyl Quantification negative 8 ng/mL METHADONE SCREEN negative 300 ng/mL Methadone Quantification negative 100 ng/mL EDDP (Methadone metabolite) Quantification negative 100 ng/mL TRAMADOL SCREEN positive 200 ng/mL Tramadol Quantification positive-75662.126 100 ng/mL Q-oazeseqtz-mnauwljs Quantification positive-55628.817 100 ng/mL W-Pfiifbvew-Ecupjaku Quantification positive-91223.174 100 ng/mL Tapentadol Quantification negative 50 ng/mL BENZODIAZEPINES SCREEN negative 200 ng/mL Alpha-Hydroxyalprazolam Quantification negative 20 ng/mL 0-Gprdh-Naecfjphwh Quantification negative 20 ng/m L Lorazepam Quantification negative 40 ng/mL Nordiazepam Quantification negative 40 ng/mL Temazepam Quantification negative 50 ng/mL Oxazepam Quantification negative 40 ng/mL AMPHETAMINES SCREEN negative 500 ng/mL Amphetamine Quantification negative 100 ng/mL Gabapentin Quantification positive-> [id number] 1669 ng/mL Pregabalin Quantification negative 400 ng/mL Naltrexone Quantification negative 10 ng/mL Naltrexol Quantification negative 10 ng/mL Naloxone Quantification negative 20 ng/mL Carisoprodol Quantification negative 100 ng/mL Meprobamate Quantification negative 100 ng/mL BARBITURATES SCREEN negative 200 ng/mL Pentobarbital Quantification negative 200 ng/mL Phenobarbital Quantification negative 200 ng/mL Secobarbital Quantification negative 200 ng/mL Butalbital Quantification negative 200 ng/mL Methamphetamine Quantification negative 100 ng/mL COCAINE METABOLITE SCREEN negative 150 ng/mL Cocaine metabolite Quantification negative 50 ng/m L CANNABINOIDS (cTHC) SCREEN negative 50 ng/mL cTHC (Marijuana metabolite) Quantification negative 15 ng/mL MDMA SCREEN negative 500 ng/mL MDMA Quantification negative 100 ng/mL HEROIN METABOLITE SCREEN negative 10 ng/mL 6-ROSY (Heroin metabolite) Quantification negative 10 ng/mL PHENCYCLIDINE SCREEN negative 25 ng/mL Phencyclidine Quantification negative 10 ng/mL Acetyl fentanyl Quantification Fen Neg 2 ng/mL Acetyl norfentanyl Quantification Fen Neg 5 ng/mL Acryl fentanyl Quantification Fen Neg 1 ng/mL Carfentanil Quantification Fen Neg 2 ng/mL Para-fluorofentanyl Quantification Fen Neg 1 ng/m L CREATININE normal-137.6 >20 mg/dL mg/dL OXIDANT normal-0 <200 ug/mL ug/mL PH normal-7.4 4.5 - 9.5 SPECIFIC GRAVITY normal-1.013 1.003 - 1.035 Urine tox screen / MS if ind icated Reviewed date:12/20/2024 08:14:15 AM Interpretation:Consistent Performing Lab: Notes/Report: Consistent Urine tox screen / MS if ind icated Reviewed date:12/20/2024 08:14:15 AM Interpretation:Consistent Performing Lab: Notes/Report: Consistent Reason For Referral Reason Evaluation for possi ble treatment (clinic closing due to provider's long-term) Diagnosis 1 Vertebrogenic low ba ck pain (M54.51) Referral Organization [facility] [employer] Referring Provider First Name Cristóbal Referring Provider Last Name Marcie Referring Provider Speciality Pain Manag ement Referred Provider Interventional Pain Management, . Referred Provider Specialty Pain Managem ent General Notes Lakisha Wren 10:31:32 AM >WAITING FOR LAST VISIT RECORD TO BE SIGNED OFF ON PRIOR TO FAXING REFERRAL., Lakisha Wren 02/10/2025 10:50:10 AM >FAXED TODAY. Referral Priority Routine Referral Appointment Date 04/27/2025 Medications Medication SIG (Take, Route, Frequency, Duration) Notes Start Date End Date Status Fish Oil 1200 mg 1 cap orally as directed Active gabapentin 300 mg 1 cap orally 3 times a day; Duration: 28 days Active acetaminophen-hydrocodone 325 mg-10 mg 1 tab orally Q4-6H prn severe pain (max 3/day; hold within 4H of planned sleep); Duration: 28 days Do not fill prior to 03/31/25. ICD-10: G89.29 Active cyclobenzaprine 10 mg 1 tab po orally QH S prn spasm Active acetaminophen-hydrocodone 325 mg-10 mg 1 tab orally Q4-6H prn severe pain (max 3/day; hold within 4H of planned sleep); Duration: 28 days Do not fill prior to 04/28/25. ICD-10: G89.29 02/08/2025 Active escitalopram 10 mg 1 tab orally once a day Active gemfibrozil 600 mg 1 tab orally once a day Active lisinopril 20 mg 1 tab orally once a day Active meloxicam 15 mg 1 tab po orally Q24H prn pain; take with food Active metFORMIN 500 mg 1 tab orally 2 times a day Active finasteride 5 mg 1 tab orally once a day Active acetaminophen-hydrocodone 325 mg-10 mg 1 tab orally Q4-6H prn severe pain (max 3/day; hold within 4H of planned sleep); Duration: 28 days Do not fill prior to 03/03/25. ICD-10: G89.29 Active traMADol 50 mg 1-2 tabs orally Q4-6H prn pain (max 6/day; hold within 4H of planned sleep); Duration: 28 days ICD-10: G89.29 Active Social History Tobacco Use: Social History Observation Description Date Details (start date - stop date) Former Smoker NA - NA Tobacco use: Question Answer Notes : former smoker When did you start smoking? 2012 AUDIT-C (Standard) Question Answer Notes Did you have a drink containing alcohol in the p ast year? No Points 0 Interpretation Negative Problems Problem Type SNOMED Code ICD Code Onset Dates Problem Status W/U Status Risk Notes Problem Solitary sacroiliitis (048846411) Sacroiliitis, not elsewhere classified (M46.1) Active confirmed Problem Low back pain (387891516) Low back pain (M54.5) Active confirmed Problem Lumbosacral spondylosis without myelopathy (72907807) Spondylosis without myelopathy or radiculopathy, lumbar region (M47.816) Active confirmed Problem High risk drug monitoring status (524289439) residential (current) use of opiate analgesic (Z79.891) Active confirmed Problem Anxiety disorder (664361145) Other specified anxiety disorders (F41.8) Active confirmed Problem Hypersomnia (19026037) Hypersomnia, unspecified (G47.10) Active confirmed Problem Chronic pain (19172463) Other chronic pain (G89.29) Active confirmed Problem Essential hypertension (67366683) Essential (primary) hypertension (I10) Active confirmed Problem Arthralgia of the pelvic region and thigh (958400079) Pain in right hip (M25.551) Active confirmed Problem Pain of left hip joint (finding) (470928166495586) Pain in left hip (M25.552) Active confirmed Problem Spinal stenosis of lumbar region (97045106) Spinal stenosis, lumbar region (M48.06) Active confirmed Problem Radiculopathy due to lumbar intervertebral disc disorder (974806187274582) Intervertebral disc disorders with radiculopathy, lumbar region (M51.16) Active confirmed Problem Myalgia (32284527) Myalgia (M79.1) Active confirmed Problem Pain in right leg (078191810) Pain in right leg (M79.604) Active confirmed Problem Procedure not carried out (640052532) Procedure and treatment not carried out because of patient's decision for unspecified reasons (Z53.20) Active confirmed Problem Long-term current use of drug therapy (743868512) Other halfway (current) drug therapy (Z79.899) Active confirmed Problem Neurogenic claudication (261917189) Spinal stenosis, lumbar region with neurogenic claudication (M48.062) Active confirmed Problem Pain in lumbar spine (867489037) Vertebrogenic low back pain (M54.51) Active confirmed Vital Signs Temperature 97.8 degrees Fahrenheit 02/09/2025 Blood pressure diastolic 62 mm Hg 02/09/2025 Oximetry 92 % 02/09/2025 Height 70 in 02/09/2025 Blood pressure systolic 104 mm Hg 02/09/2025 Weight 251.2 lbs 02/09/2025 BMI 36.04 kg/m2 02/09/2025 Encounters Encounter Location Date Provider Diagnosis [facility] [address] [place], [place] [id number] 06/10/2024 Hyacinth Hansen Vertebrogenic low ba ck pain M54.51 ; Other chronic pain G89.29 ; Pain in left hip M25.552 ; Pain in right hip M25.551 and Hypersomnia, unspecified G47.10 [facility] [place], [place] [id number] 08/19/2024 Cristóbal Jack Vertebrogenic low ba ck pain M54.51 ; Other chronic pain G89.29 and Hypersomnia, unspecified G47.10 [facility] [place] [address] [place], [place] [id number] 10/21/2024 Cristóbal Jack Vertebrogenic low ba ck pain M54.51 ; Other chronic pain G89.29 and Hypersomnia, unspecified G47.10 [facility] [address] [place], [place] [id number] 12/16/2024 Cristóbal Jack Vertebrogenic low ba ck pain M54.51 ; Other chronic pain G89.29 ; Essential (primary) hypertension I10 ; Hypersomnia, unspecified G47.10 and buttermaker (current) use of opiate analgesic Z79.891 [facility] [address] [place], [place] [id number] 02/09/2025 Cristóbal Jack Vertebrogenic low ba ck pain M54.51 ; Other chronic pain G89.29 and Hypersomnia, unspecified G47.10 [facility] [address] [place], [place] [id number] 06/18/2024 Cristóbal Jack Assessments Encounter Date Diagnosis (ICD Code) Assessment Notes Treatment Notes Treatment Clinical Notes Section Notes 02/09/2025 Other chronic pain (ICD-10 - G89.29) Patient reports that taking his pain medication allows him to work in his garden and yard. Plan to continue oral opioid medication at today's visit. 02/09/2025 Vertebrogenic low back pain (ICD-10 - M54.51) Chronic axial lumbosacral spine pain. Patient requests referral to Interventional [facility] in [facility] for continuation of care. 12/16/2024 Other chronic pain (ICD-10 - G89.29) Patient reports that taking his pain medication allows him to work in his garden. Plan to continue oral opioid medication management. 12/16/2024 Vertebrogenic low back pain (ICD-10 - M54.51) Chronic axial lumbosacral spine pain. Patient underwent L2-5 laminectomy with L3-5 fusion on 06/11/[address] Riley at [facility] in [place]. Follow up as needed. 10/21/2024 Vertebrogenic low back pain (ICD-10 - M54.51) Chronic axial lumbosacral spine pain. Patient underwent L2-5 laminectomy with L3-5 fusion on 06/11/[address] Riley at [facility] in [place]. Follow up as needed or scheduled. 06/10/2024 Vertebrogenic low back pain (ICD-10 - M54.51) Chronic axial lumbosacral spine pain and LLE radicular symptoms. Dr. Zhao is now managing patient's gabapentin. Patient reports he is scheduled for L2-5 laminectomy with L3-5 fusion on 06/11/[address] Riley at [facility] in [place]. 08/19/2024 Other chronic pain (ICD-10 - G89.29) Patient reports that taking his pain medication allows him to continue recovery from lumbar spine surgery. Plan to continue oral opioid medication management. 08/19/2024 Vertebrogenic low back pain (ICD-10 - M54.51) Chronic axial lumbosacral spine pain. Patient underwent L2-5 laminectomy with L3-5 fusion on 06/11/[address] Riley at [facility] in [place]. 08/19/2024 Hypersomnia, unspecified (ICD-10 - G47.10) Plan to continue to restrict opioid use in relation to sleep for safety concerns. 10/21/2024 Other chronic pain (ICD-10 - G89.29) Patient reports that taking his pain medication allows him to slowly get back to normal activity. Plan to continue oral opioid medication management. 06/10/2024 Pain in left hip (ICD-10 - M25.552) 06/10/2024 Other chronic pain (ICD-10 - G89.29) Patient reports that taking his pain medication allows him to work in his yard. Plan to continue oral opioid medication management. 12/16/2024 Essential (primary) hypertension (ICD-10 - I10) Education sheet given at today's visit; patient to address with PCP. 02/09/2025 Hypersomnia, unspecified (ICD-10 - G47.10) Plan to continue to restrict opioid use in relation to sleep for safety concerns. 12/16/2024 Hypersomnia, unspecified (ICD-10 - G47.10) Plan to continue to restrict opioid use in relation to sleep for safety concerns. 10/21/2024 Hypersomnia, unspecified (ICD-10 - G47.10) Plan to continue to restrict opioid use in relation to sleep for safety concerns. 06/10/2024 Pain in right hip (ICD-10 - M25.551) 06/10/2024 Hypersomnia, unspecified (ICD-10 - G47.10) Plan to continue to restrict opioid use in relation to sleep for safety concerns. 12/16/2024 buttermaker (current) use of opiate analgesic (ICD-10 - Z79.891) 2022 opioid (OUD) risk tool score = 0. This places the patient in the low risk category. Plan urine toxicology screen today with [facility] to monitor for presence of any unprescribed or illicit controlled substance(s), as well as prescribed hydrocodone and tramadol (unable to test for tramadol in-office). 12/16/2024 Other The service was provided by NIHARIKA Johnson, as part of the ongoing care plan established by Cristóbal Jack MD, who was present in the office for direct supervision during the encounter. 02/09/2025 Other The service was provided by NIHARIKA Johnson, as part of the ongoing care plan established by Cristóbal Jack MD, who was present in the office for direct supervision during the encounter. Patient was provided with a letter at today's visit informing patient that this clinic is closing due to Dr. Jack's long-term; see scanned document. Printed terminal prescriptions were given to the patient (having pharmacy issues) along with tapering instructions. 08/19/2024 Other The service was provided by NIHARIKA Johnson, as part of the ongoing care plan established by Cristóbal Jack MD, who was present in the office for direct supervision during the encounter. 10/21/2024 Other The service was provided by NIHARIKA Johnson, as part of the ongoing care plan established by Cristóbal Jack MD, who was present in the office for direct supervision during the encounter. 06/10/2024 Other Plan Of Treatment No Information Insurance Providers Payer Name Payer Address Payer Phone Subscriber Number Group Number Insured Name Patient Relationship to Insured Coverage Start Date Coverage End Date [employer] Medicare Part B Claims Department [address] [address] [place] [address] [id number] Frank Link Self - patient is the insured [employer] [address] [address] [place] [address] [id number] Frank Link Self - patient is the insured Medical (General) History Medical History History ICD Code Chronic pain Low back pain Lumbar spondylosis, disc disease and spi nal stenosis Sacroiliitis Bilateral hip pain, DJD (mil d on left, mild to moderate on right per prior plain films reports) Cervical spondylosis as note d upon review of prior cervical spine plain films report Degenerative disc disease, c ervical, as per review of external medical records Left shoulder pain Hypertension Dyslipidemia Enlarged prostate Anxiety disorder Type II diabetes Arthritis Sleep disorder, snoring (pre viously recommended and ordered a sleep study and possible treatment: patient declined to attend the sleep study) Obesity, moderate Surgical History Surgery Date(Month/Year) Appendectomy Shoulder surgery, left, 2000 Forearm fracture repair with ORIF, left, 2000 RTC repair, right, 2009 L2-5 laminectomy, L3-5 fusio n / fixation, performed at [facility] in [place] by Dr. Riley, 06/11/24 Hospitalization History Reason Date(Month/Year)
--- OUTSIDE RECORDS SUMMARY | 2025-04-30 06:36 | XMS_ITS | Clinical Summary ---
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 Active cyclobenzaprine (FLEXERIL) 10 mg tablet TAKE 1 TABLET BY MOUTH ONCE DAILY NEEDED FOR SEVERE SPASMS Active escitalopram oxalate (LEXAPRO) 20 mg tablet Take 20 mg by mouth daily. Active finasteride (PROSCAR) 5 mg tablet Take 5 mg by mouth daily. Active gabapentin (NEURONTIN) 300 mg capsule Take 300 mg by mouth every 8 hours. Active glipiZIDE (GLUCOTROL) 10 mg tablet TAKE 2 TABLETS BY MOUTH IN THE MORNING AND 2 TABS IN THE EVENING Active levoFLOXacin (LEVAQUIN) 500 mg tablet Take 1 Tablet by mouth daily. 4 Active lisinopriL (PRINIVIL) 30 mg tablet Take 30 mg by mouth daily. Active metFORMIN (GLUCOPHAGE) 1,000 mg tablet Take 1,000 mg by mouth 2 times daily. Active pioglitazone (ACTOS) 15 mg tablet Take 1 Tablet by mouth daily. 4 Active tamsulosin (FLOMAX) 0.4 mg capsule Take 0.4 mg by mouth daily. Active omega-3 fatty acids-fish oil 300-1,000 mg Capsule Take by mouth daily. Active diazePAM (Valium) 10 mg tabletIndications: Degeneration of intervertebral disc of lumbar region, unspecified whether pain present Take 1 Tablet (10 mg) by mouth every 8 hours as needed for Anxiety. 30 Tablet 4 Active oxyCODONE (ROXICODONE) 10 mg tabletIndications: Lumbar foraminal stenosis,S/P lumbar fusion Take 1 Tablet (10 mg) by mouth every 6 hours as needed for Pain, Moderate. Max Daily Amount: 40 mg 28 Tablet 4 Active HYDROcodone-acetam inophen (NORCO) 5-325 mg tabletIndications: S/P lumbar fusion Take 1 Tablet by mouth every 4 hours as needed for Pain, Moderate. Max Daily Amount: 6 Tablets 20 Tablet 4 Active naloxone (NARCAN) 4 mg/spray [place], Non-Aerosol CALL 911. Administer 1 spray in one nostril. May repeat in 2-3 minutes if no or minimal response. 2 Each 4 Active Active Problems Problem Noted Date Diagnosed Date Preoperative general physical examination 2023 Lumbar foraminal stenosis 05/20/2024 Obesity (BMI 30.0-34.9) 05/20/2024 Primary hypertension 05/20/2024 Dyslipidemia 05/20/2024 Type 2 diabetes mellitus wit h hyperglycemia, without long-term current use of insulin 05/20/2024 Anxiety 05/20/2024 BPH (benign prostatic hyperplasia) 05/20/2024 History of tobacco use 05/20/2024 Anemia 05/20/2024 Hyponatremia 05/20/2024 Hyperkalemia 05/20/2024 Elevated serum creatinine 05/20/2024 Encounters Date Type Department Care Team Description 04/26/2025 External Device Data STL ABSTRACTION Provider, Abstract 03/30/2025 External Device Data ST[facility] ABSTRACTION Provider, Abstract 03/29/2025 External Device Data ST[facility] ABSTRACTION Provider, Abstract 03/22/2025 External Device Data ST[facility] ABSTRACTION Provider, Abstract 03/22/2025 External Device Data ST[facility] ABSTRACTION Provider, Abstract 03/22/2025 External Device Data ST[facility] ABSTRACTION Provider, Abstract 03/08/2025 External Device Data ST[facility] ABSTRACTION Provider, Abstract 03/08/2025 External Device Data ST[facility] ABSTRACTION Provider, Abstract 03/02/2025 External Device Data ST[facility] ABSTRACTION Provider, Abstract 03/01/2025 External Device Data ST[facility] ABSTRACTION Provider, Abstract 02/15/2025 External Device Data STL ABSTRACTION Provider, Abstract from Last 3 Months Family History Medical History Relation Name Comments Blood Clots Father Relation Name Status Comments Father Social History Tobacco Use Types Packs/Day Years Used Date Smoking Tobacco: Former Cigarettes 2 41 1 973 - 2014 Smokeless Tobacco: Never Tobacco Cessation:Counseling Given: Not Answered Alcohol Use Standard Drinks/Week Comments Not Currently 0 (1 standard drink = 0.6 oz pur e alcohol) Sex and Gender Information Value Date Recorded Sex Assigned at Not on file Legal Sex Male 2:32 AM DOWN FILLER Gender Identity Not on file Sexual Orientation Not on file Last Filed Vital Signs Vital Sign Reading Time Taken Comments Blood Pressure 148/76 11/01/2024 11:14 AM DOWN FILLER Pulse 98 06/13/2024 11:42 AM CDT Temperature 36.8 C (98.2 F) 07/29/2024 10:46 AM DOWN FILLER Respiratory Rate 16 06/13/2024 11:42 AM CDT Oxygen Saturation 93% 06/13/2024 11:42 AM CDT Inhaled Oxygen Concentration - - Weight 110.2 kg (243 lb) 11/01/2024 11:14 AM DOWN FILLER Height 177.8 cm (5' 10 ) 11/01/2024 11:14 AM DOWN FILLER Body Mass Index 34.87 11/01/2024 11:14 AM DOWN FILLER Plan of Treatment Upcoming Encounters Date Type Department Care Team (Late st Contact Info) Description 06/01/2025 11:00 AM CDT Office Visit [facility] [address] [place] [id number] Vanita Cornell, ALEKS [address] [place] [id number] Health Maintenance Due Date Last Done Comments DIABETES ANNUAL FOOT EXAM 1973 DIABETES ANNUAL RETINAL EXAM 1973 DIABETES MICROALBUMIN ANNUAL SCREEN 1973 LDL CHOLESTEROL ANNUAL 1973 DTAP/TDAP/TD VACCINES (1 - Tdap) 1974 PNEUMOCOCCAL VACCINE 50+ YEA RS (1 of 2 - PCV) 1974 COLORECTAL SCREENING 2000 Colorectal Cancer Screening 2000 FIT-DNA Q 3 years 2000 FIT/FOBT Q 1 year 2000 Flex Sig/CT Colonography Q 5 years 2000 Lung Cancer Screening 2005 ZOSTER VACCINE (1 of 2) 2005 Abdominal Aortic Aneurysm (A AA) Screening 2020 COVID-19 Vaccine (2023-2 5 season) 2024 06/28/2022, 07/27/2021, 11/10/2020, Additional history exists DIABETES HBA1C Q 6 MONTHS 11/17/2024 05/20/2024 INFLUENZA VACCINE (#1) 2025 06/28/2022, 2020 RSV VACCINE (60+ or ) (1 - 1-dose 75+ series) 2030 Medical Devices Implanted Type Area Channel Opener Device Identifier Shelf Expiration Date Model / Serial / Lot Putty Mastergraft 9.0ml [id number] - [id number] Implanted:Qty : 1 on 06/11/2024 by Lou Riley MD at [facility] Biological N/A: Spine Lumbar [employer] [id number] 11/12/2027 [id number] / / [id number] Hemostatic Surgifoam 1gm 1977 - [id number] Implanted:Qty : 1 on 06/11/2024 by Lou Riley MD at [facility] Hemostatic N/A: Spine Lumbar [employer] [id number] 12/28/20251977 280409 Hemostatic Surgifoam 1gm 1977 - [id number] Implanted:Qty : 1 on 06/11/2024 by Lou Riley MD at [facility] Hemostatic N/A: Spine Lumbar [employer] [id number] 12/28/20251977 813428 Leon Cdh Ti Cp4 5.5x60mm Crvd [id number] - [id number] Implanted:Qty : 2 on 06/11/2024 by Lou Riley MD at [facility] Leon N/A: Spine Lumbar [employer] 06/10/2025 [id number] / / [id number] Screw Cdh 6.5x45mm 5.5/6.0 Mas Cc [id number] - [id number] Implanted:Qty : 6 on 06/11/2024 by oLu Riley MD at [facility] Screw N/A: Spine Lumbar [employer] 06/11/2025 [id number] / / [id number] Screw Solera 5.5/6.0 Breakoff [id number] - [id number] Implanted:Qty : 6 on 06/11/2024 by Lou Riley MD at [facility] Screw N/A: Spine Lumbar [employer] 06/11/2025 [id number] / / [id number] Allograft Putty Influx Dbm 10ml Iflx-Pt-10 - [id number] Implanted:Qty : 1 on 06/11/2024 by Lou Riley MD at [facility] Tissue N/A: Spine Lumbar [employer] 10/29/2026 IFLX-PT-10 / [id number] / Allograft Putty Influx Dbm 5ml Iflx-Pt-05 - [id number] Implanted:Qty : 1 on 06/11/2024 by Lou Riley MD at [facility] Tissue N/A: Spine Lumbar [employer] 12/01/2026 IFLX-PT-05 / [id number] / Allograft Magnifuse Pc [id number] - [id number] Implanted:Qty : 1 on 06/11/2024 by Lou Riley MD at [facility] Tissue N/A: Spine Lumbar [employer] 04/12/2026 [id number] / [id number] / Procedures Procedure Name Priority Date/Time Associated Diagnosis Comments HEMOGLOBIN A1C Routine 05/20/2024 2:05 PM CDT from Last 3 Months or Most Recently Relevant to Health Maintenance Results * (ABNORMAL) HEMOGLOBIN A1C (05/20/2024 2:05 PM CDT) HEMOGLOBIN A1C 7.5(H) <=5.6 % 05/20/2024 2:37 PM CDT [facility] AVG GLUCOSE, A1C 169 mg/dL 05/20/2024 2:37 PM CDT [facility] Blood Venipuncture / Unknown 05/20/2024 2:05 PM CDT 05/20/2024 2:11 PM CDT Narrative [facility] - 05/20/2024 2:37 PM CDT HGB A1C INTERPRETATION NORMAL: <5.7% PRE-DIABETES: 5.7 - 6.4% DIABETES: 6.5% OR GREATER us Jag Connell MD CHEMISTRY ORDERABLES Final Resu lt [facility] CLIA #[id number] [address] [place] [address] from Last 3 Months or Most Recently Relevant to Health Maintenance Insurance MEDICARE PART A AND B [facility] MEDICARE SUPPLEMENT RX [place] [employer] Medicare Part D RX [employer] (INTERNAL) [facility] Internal Plans Advance Directives For more information, please contact: [phone] * Full Code (Latest Code Status on File) Date Activated Date Inactivated Comments 06/11/2024 4:40 PM 06/13/2024 2:41 PM
--- OUTSIDE RECORDS SUMMARY | 2025-04-30 06:36 | XMS_ITS ---
Laboratory report Created on: April 26, 2025 SHIKHA MALONEY : 1955 Sex: Male Author Name ANIVAL CARUSO Organization Unknown PROBLEMS Problems List Code Description E11.9 RESULTS Laboratory Orders Date Order Code Test 2025-04-21 950473 HEMOGLOBIN A1C Laboratory Results Date LOINC Test Value Unit Reference Range Interpre tation 2025-04-21 [id number] HEMOGLOBIN A1C 6.9 % 4.8-5.6 H
[2025-04-30 07:11] VITALS: BP 134/75; PULSE 83; RESP 21; TEMP 36.5; O2SAT 91; BMI 36.6
--- NOTE | 2025-04-30 07:26 | W.ED.GENADLT ---
HPI - General Adult General: Chief complaint: Airway/Esophagus Foreign Body Stated complaint: rt side tongue swollen Time Seen by Provider: 04/30/25 06:32 History of Present Illness: 70-year-old male presents emergency room complaining wake up his right side of his tongue was initially swelling he had no difficulty speech or swallowing all the swelling seems to be gone now. He never had any difficulty with breathing. No vomiting no diarrhea no new medicines or foods. Associated symptoms: Deny chest pain, dyspnea or rash Related Data Home Medications ?Medication ?Instructions ?Recorded ?Confirmed atorvastatin 40 mg tablet 40 mg PO QPM 11/21/23 04/01/25 cyclobenzaprine 10 mg tablet 10 mg PO DAILY 11/21/23 04/01/25 escitalopram oxalate 20 mg tablet 20 mg PO DAILY 11/21/23 04/01/25 finasteride 5 mg tablet 5 mg PO DAILY 11/21/23 04/01/25 glipizide 10 mg tablet 10 mg PO BID 11/21/23 04/01/25 hydrocodone 10 mg-acetaminophen 1 tab PO Q4H 11/21/23 04/01/25 325 mg tablet lisinopril 30 mg tablet 30 mg PO DAILY 11/21/23 04/01/25 meloxicam 15 mg tablet 15 mg PO DAILY 11/21/23 04/01/25 metformin 1,000 mg tablet 1,000 mg PO BID 11/21/23 04/01/25 omega 8-hjx-nyh-fish oil 300 2 cap PO QPM 11/21/23 04/01/25 mg-1,000 mg capsule (Fish Oil) tadalafil 20 mg tablet 20 mg PO DAILY PRN Erectile 11/21/23 04/01/25 Dysfunction tamsulosin 0.4 mg capsule 0.4 mg PO BID 11/21/23 04/01/25 tramadol 50 mg tablet 50 - 100 mg PO Q4H PRN Pain 11/21/23 04/01/25 gabapentin 300 mg capsule 300 mg PO TID 01/24/25 04/01/25 Allergies Allergy/AdvReac Type Severity Reaction Status Date / Time No Known Allergies Allergy Verified 04/01/25 08:27 Review of Systems Const: Denies: fever(s) or chills Card: Denies: chest pain Resp: Denies: dyspnea GI: Denies: abdominal pain : Denies: dysuria, urinary frequency or urinary urgency Musc: Denies: neck pain or back pain Skin/Breast: Denies: rash PFSH ED PFSH: Social History Smoking and tobacco/nicotine status: former use of tobacco/nicotine Physical Exam Const: COMMON NORMALS: no acute distress GENERAL APPEARANCE: cooperative and comfortable ORIENTATION/CONSCIOUSNESS: Yes awake, Yes oriented to person, Yes oriented to place and Yes oriented to time HENMT: COMMON NORMALS: normocephalic, atraumatic and hearing grossly normal bilaterally HEAD & SCALP: normocephalic and atraumatic OTHER: Oropharynx normal no swelling of the tongue no asymmetry Resp: COMMON NORMALS: normal respiratory effort, No retractions, No use of accessory muscles and clear to auscultation bilaterally AUSCULTATION: clear to auscultation bilaterally Cardio: COMMON NORMALS: regular rate, regular rhythm and No murmurs present (Cardio) RATE: regular rate RHYTHM: regular rhythm GI: COMMON NORMALS: Soft to palpation and No hepatosplenomegaly present AUSCULTATION: Yes normoactive bowel sounds PALPATION: Yes Soft to palpation, No Tenderness to palpation present (GI), No Guarding due to palpation present (GI) and Yes No hepatosplenomegaly present Extremity: COMMON NORMALS: normal to inspection, capillary refill normal, no clubbing, cyanosis or edema, no calf tenderness and no pedal edema Neuro: SENSORIUM/ORIENTATION: Yes oriented to person, Yes oriented to place and Yes oriented to time Skin: COMMON NORMALS: no rashes or lesions noted GENERAL SKIN EXAM: no rashes or lesions noted Course Vital Signs: Vital signs: Vital Signs Temperature 97.7 F 04/30/25 07:11 Pulse Rate 70 04/30/25 08:38 Respiratory Rate 21 H 04/30/25 07:11 Blood Pressure 146/73 04/30/25 08:38 Pulse Oximetry 91 04/30/25 08:38 Oxygen Delivery Me thod Room Air 04/30/25 07:11 MDM - General Adult Medical Decision Making No physical exam findings there is no swelling of the tongue. Recommend observing for now if has recurrence or further problems return. He is on lisinopril but he does not seem to have any significant angioedema return if has further problems. Lab Data 04/30/25 07:22 04/30/25 07:22 Laboratory Results WBC 7.40 10^3/uL (3.29-11.43) 04/30/25 07: RBC 4.08 10^6/uL (3.85-5.65) 04/30/25 07:22 Hgb 12.20 g/dL (11.27-16.99) 04/30/25 07:22 Hct 39.9 % (37-53) 04/30/25 07: MCV 97.8 fl (82-101) 04/30/25 07:22 MCH 29.9 pg (27-33) 04/30/25 07: MCHC 30.6 g/dL (30-55) 04/30/25 07: RDW 14.5 % (12.1-15.1) 04/30/25 07:22 Plt Count 195 10^3/cmm (157-399) 04/30/25 07: MPV 11.1 fL (7.4-10.4) H 04/30/25 07:22 Neut % (Auto) 64.9 % 04/30/25 07:22 Lymph % (Auto) 21.9 % 04/30/25 07:22 Bracken % (Auto) 7.6 % 04/30/25 07:22 Eos % (Auto) 4.9 % 04/30/25 07:22 Baso % (Auto) 0.4 % 04/30/25 07:22 Neut # (Auto) 4.81 10^3/uL (1.8-7.7) 04/30/25 07: Lymph # (Auto) 1.6 10^3/uL (0.8-4.8) 04/30/25 07:22 Bracken # (Auto) 0.6 10^3/uL (0.2-0.9) 04/30/25 07:22 Eos # (Auto) 0.4 10^3/uL (0.0-0.8) 04/30/25 07:22 Baso # (Auto) 0.0 10^3/uL (0.0-0.1) 04/30/25 07:22 Nucleated RBC % (auto) 0 % 04/30/25 07: Nucleated RBCs # 0.0 /100WBC 04/30/25 07:22 Sodium 137 mmol/L (136-145) 04/30/25 07:22 Potassium 5.3 mmol/L (3.5-5.1) H 04/30/25 07:22 Chloride 100 mmol/L (98-107) 04/30/25 07:22 Carbon Dioxide 27 mmol/L (22-29) 04/30/25 07:22 Anion Gap 15.3 (5-19) 04/30/25 07:22 BUN 26 mg/dL (8-23) H 04/30/25 07:22 Creatinine 1.1 mg/dL (0.7-1.2) 04/30/25 07:22 GFR Calculation 66.2 mL/min (90-130) L 04/30/25 07:22 Glucose 134 mg/dL (65-115) H 04/30/25 07:22 Calculated Osmolality 291 mOsm/kg (285-295) 04/30/25 07:22 Calcium 9.6 mg/dL (8.5-10.5) 04/30/25 07:22 Total Bilirubin 0.3 mg/dL (0.15-1.2) 04/30/25 07:22 AST 15 U/L (0-40) 04/30/25 07:22 ALT 18 U/L (0-41) 04/30/25 07:22 Alkaline Phosphatase 51 U/L (40-130) 04/30/25 07:22 Total Protein 7.3 g/dL (6.6-8.7) 04/30/25 07:22 Albumin 4.4 g/dL (3.5-5.2) 04/30/25 07:22 Globulin 2.9 g/dL (1.3-4.6) 04/30/25 07:22 No radiology studies performed this visit Discharge Plan Discharge Patient Disposition: Home Clinical Impression: Mild tongue swelling Condition: Stable Prescriptions: No Action cyclobenzaprine 10 mg tablet 10 mg PO DAILY atorvastatin 40 mg tablet 40 mg PO QPM meloxicam 15 mg tablet 15 mg PO DAILY glipizide 10 mg tablet 10 mg PO BID hydrocodone-acetaminophen 10-325 mg tablet 1 tab PO Q4H tramadol 50 mg tablet 50 - 100 mg PO Q4H PRN (Reason: Pain) tamsulosin 0.4 mg capsule 0.4 mg PO BID metformin 1,000 mg tablet 1,000 mg PO BID lisinopril 30 mg tablet 30 mg PO DAILY finasteride 5 mg tablet 5 mg PO DAILY escitalopram oxalate 20 mg tablet 20 mg PO DAILY tadalafil 20 mg Tablet 20 mg PO DAILY PRN (Reason: Erectile Dysfunction) Rx Instructions: administer approximately 30min before sexual activity; do not use more than 1 dose per 24hrs Fish Oil 300-1,000 mg Capsule 2 cap PO QPM gabapentin 300 mg capsule 300 mg PO TID Discharge Orders: Discharge ED (Routine); Ordered 04/30/25 Ordered By: Fidel Lafleur Referrals: Antione Zhao MD [Primary Care Provider, Family Practice] Patient Instructions: Opioid Safety, Pain Management, Patient Portal & Wing Instructions Activity Restrictions/Additional Instructions: Thank you for choosing [facility] for your healthcare needs today. It is very important that you follow up as instructed or that you return to the Emergency Department should you have concerns or if your condition changes or worsens in any way. You were seen in the emergency room with complaints of swelling on the right side of your tongue your exam was normal your symptoms had resolved we will just observe for now. You can take Claritin or cetirizine [id number] as needed as an antihistamine if you have recurrent symptoms if symptoms recur and are significant or cause difficulty speech or swallowing return to the emergency room. Print Language: Urdu Coding Level of Care Code ED [employer] for [employer]
[2025-04-30 07:27] LABS: Hematocrit 39.9 % (37-53); Hemoglobin 12.20 g/dL (11.27-16.99); Mean Corpuscular HGB Conc 30.6 g/dL (30-55); Mean Corpuscular Hemoglobin 29.9 pg (27-33); Mean Corpuscular Volume 97.8 fl (82-101); Nucleated Red Blood Cells % 0 %; Platelet Count 195 10^3/cmm (157-399); Red Blood Count 4.08 10^6/uL (3.85-5.65); White Blood Count 7.40 10^3/uL (3.29-11.43)
[2025-04-30 08:15] LABS: Alanine Aminotransferase 18 U/L (0-41); Albumin Level 4.4 g/dL (3.5-5.2); Alkaline Phosphatase 51 U/L (40-130); Anion Gap 15.3 (5-19); Aspartate Amino Transferase 15 U/L (0-40); Blood Urea Nitrogen 26 mg/dL (8-23); Calcium 9.6 mg/dL (8.5-10.5); Carbon Dioxide 27 mmol/L (22-29); Chloride 100 mmol/L (98-107); Creatinine Clr Calc Pharmacy 79.6041; Globulin 2.9 g/dL (1.3-4.6); Glucose 134 mg/dL (65-115); Osmolality Calculated 291 mOsm/kg (285-295); Potassium 5.3 mmol/L (3.5-5.1); Sodium 137 mmol/L (136-145); Total Protein 7.3 g/dL (6.6-8.7)
[2025-04-30 08:38] VITALS: BP 146/73; PULSE 70; O2SAT 91
== END 2025-04-30 08:39 | disposition home or self-care (01) ==
PROVIDERS: Emergency Provider Family Medicine; PCP Family Medicine
DX: K14.8 Other diseases of tongue (principal); Z79.84 Long term (current) use of oral hypoglycemic drugs; Z87.891 Personal history of nicotine dependence
CPT/HCPCS: 80053; 85025; 99283

== ENCOUNTER 2025-08-15 05:00 | Outpatient (RCR) | payer MEDICARE, OTHER, SELFPAY | END 2025-09-14 23:59 | disposition home or self-care (01) | LOC: SPT 05:00 | PROVIDERS: PCP Family Medicine; Visit Provider General Practice | DX: M25.552 Pain in left hip (principal) | CPT/HCPCS: 97110; 97161; G0283 ==